=== PATIENT | female | born 1955 | race Caucasian/White ===

== ENCOUNTER 2023-07-24 20:20 | Emergency (ER) | payer OTHER, MEDICAID ==
[~2023-07-24] VITALS: Ht 170.2 cm; Wt 81.8 kg
[~2023-07-24 20:20] MED LIST: QUET50TA PO; TOPI25TA43 PO
[2023-07-24 21:05] LABS: Basophils # (auto) 0 10 ^3/uL (0-0.2); Basophils % (auto) 0.8 % (0.0-2.0); Eosinophils # (auto) 0 10 ^3/uL (0-0.8); Eosinophils % (auto) 0.5 % (0.0-7.0); Hematocrit 40.3 % (36.0-46.0); Hemoglobin 13.5 g/dL (12.2-16.2); Lymphocytes # (auto) 1.1 10 ^3/uL (0.4-5.4); Lymphocytes % (auto) 23.5 % (10.0-50.0); Mean Corpuscular Hemoglobin 32.9 pg (28.0-32.0); Mean Corpuscular Hgb Conc. 33.6 g/dL (32.0-36.0); Monocytes # (auto) 0.5 10 ^3/uL (0-1.3); Monocytes % (auto) 10.9 % (0.0-12.0); Neutrophils # (auto) 3.1 10 ^3/uL (1.6-8.6); Neutrophils % (auto) 64.3 % (37.0-80.0); Nucleated Red Blood Cells % 0.1 %; Red Blood Cells 4.11 10^6/uL (4.0-5.20); Red Cell Distribution Width 14.8 % (11.8-14.3); White Blood Cell 4.8 10^3/uL (4.4-10.8)
[2023-07-24 21:16] LABS: Acetaminophen < 2.0 UG/ML (10.0-20.0); Alanine Aminotransferase 15 U/L (7-40); Albumin 4.7 g/dL (3.2-4.8); Alkaline Phosphatase 96 U/L (46-116); Anion Gap 8 (5-15); Aspartate Aminotransferase 16 U/L (13-40); BUN/Creatinine Ratio 18.6 (10.0-20.0); Blood Urea Nitrogen 16 mg/dL (9-23); Calcium 9.9 mg/dL (8.7-10.4); Carbon Dioxide 29 mmol/L (20-30); Chloride 105 mmol/L (98-107); Glucose 92 mg/dL (74-106); Potassium 3.9 mmol/L (3.5-5.1); Sodium 142 mmol/L (136-145); Total Protein 7.6 g/dL (5.7-8.2)
[2023-07-24 21:20] LABS: Salicylate < 3.0 mg/dL (2.8-20.0)
[2023-07-24 21:39] LABS: INR 1.11 (0.9-1.15); Magnesium 1.8 mg/dL (1.6-2.6); Partial Thromboplastin Time 32.1 SEC (24.5-34.5); Prothrombin Time 11.6 sec (9.3-11.8)
[2023-07-24 23:16] LABS: Amphetamine Screen, Urine Neg (NEGATIVE); Barbiturate Scree,Urine Neg (NEGATIVE); Benzodiazephine Screen, Urine Neg (NEGATIVE); Cocaine Screen, Urine Neg (NEGATIVE)
[2023-07-24 23:17] LABS: Cannabinoid Screen, Urine Neg (NEGATIVE); Opiate Scree,Urine Neg (NEGATIVE); Phencyclidine Screen, Urine Neg (NEGATIVE)
[2023-07-24 23:18] LABS: Urine Bacteria FEW /hpf (None Seen); Urine Blood Negative /uL (Negative); Urine Clarity HAZY (Clear); Urine Color Yellow (Yellow); Urine Mucus FEW (None Seen); Urine Protein, UAD 1+ (Negative); Urine Specific Gravity 1.032 (1.001-1.035); Urine WBC 24 /hpf (0 - 5); Urine pH 5.5 (5.0-8.0)
[2023-07-25] MEDS ORDERED: CEFTRIAXONE SODIUM 2 GM in D5W 5% 100 ML IV ONE (00:15)
[2023-07-25 01:10] VITALS: PULSE 79; RESP 18; O2SAT 94
[2023-07-25] MEDS ORDERED: cefTRIAXone SOD 1,000 MG VL ONE (01:22)
[2023-07-25 08:00] VITALS: PULSE 72; RESP 12; O2SAT 91
[2023-07-25 20:05] VITALS: PULSE 75; RESP 18; O2SAT 92
[2023-07-25] MEDS ORDERED: cefTRIAXone 1GM/50ML D5W 50 ML IV ONE (22:00)
[2023-07-25] MEDS: QUEtiapine FUMARATE 25 MG TAB PO SCH (22:39)
[2023-07-26 04:45] VITALS: PULSE 74; RESP 14; O2SAT 92
[2023-07-26] MEDS ORDERED: LORazepam 0.5 MG TAB PO ONE (05:15)
[2023-07-26 09:10] VITALS: RESP 18; O2SAT 97
[2023-07-26] MEDS: QUEtiapine FUMARATE 25 MG TAB PO SCH ×2 (10:12→22:19)
[2023-07-26] MEDS ORDERED: cefTRIAXone 1GM/50ML D5W 50 ML IV SCH (22:00)
[2023-07-27] MEDS: QUEtiapine FUMARATE 25 MG TAB PO SCH (10:29)
[2023-07-27 13:10] VITALS: BP 128/85; PULSE 96; RESP 16; TEMP 98.2; O2SAT 95
== END 2023-07-27 13:30 | disposition short-term general hospital (02) ==
LOC: ER 20:20 → EDBD 20:20 → ER 07-27 13:30
DX: R41.82 Altered mental status, unspecified (principal); N39.0 Urinary tract infection, site not specified; Z88.0 Allergy status to penicillin
CPT/HCPCS: 36415; 70450; 71045; 80053; 80307; 80320; 80329; 81001; 82140; 83605; 83690; 83735; 84484; 85025; 85379; 85610; 85730; 87040; 93005; 96365; 96366; 99285; J0696; J7060